=== PATIENT | female | born 1935 | race Caucasian/White ===

== ENCOUNTER → 2017-01-26 | Outpatient (CLI) | payer OTHER, BC ==
[~2017-01-26] MED LIST: ACETAMINOPHEN1 EAC2 PO; ACETAMINOPHEN325 M1 PO; BIAXIN 250MG T250 M1 PO; CEFTIN500 MG PO; CYMBALTA60 MG PO; DOXYCYCLINE 10100 MG PO; FLAGYL500 MG PO; LASIX 40 MG TAB40 M2 PO; LEVEMIR SUBQ; LEVOTHYROXINE 0.15MG PO; LOPRESSOR25 PO; LUMIGAN2.5 M1 OP; METFORMIN HCL500 MG PO; MOBIC15 MG PO; NEURONTIN 300300 M1 PO; NOVOLOG100 UNIT/1 SUBQ; PANTOPRAZOLE SO40 M1 PO; PERCOCET 7.5-31 EACH PO; PROTONIX40 M1 PO; SIMVASTATIN40 MG PO; ULTRA-LIGHT RO1 EACH MC
== END ==
LOC: RAD 14:02
DX: Z12.31 Encounter for screening mammogram for malignant neoplasm of breast (principal)